=== PATIENT | female | born 1950 | race Caucasian/White ===

== ENCOUNTER 2016-07-15 16:50 | Inpatient (IN) ==
[2016-07-15] MEDS ORDERED: ASPIRIN PO STA (19:49)
[2016-07-15 21:01] LABS: MANUAL DIFF NEEDED? NO
[2016-07-15 21:07] LABS: BASO% 0.1 % (0.0-0.8); HEMATOCRIT 32.4 % (37.0-47.0); IMM GRAN# 0.06 X1000 (0.0-0.04); IMM GRAN% 0.4 % (0.0-0.5); LYMPH% 9.5 % (20.5-51.1); MCH 29.6 PG (27-31); MCHC 30.9 g/dL (33-37); MCV 95.9 FL (81-99); MONO# 2.02 X1000 (0.11-0.59); MONO% 14.7 % (1.7-9.3); MPV 9.4 FL (7.4-10.4); NEUT% 75.3 % (42.2-75.2); PLT 273 X1000 (130-400); RBC 3.38 XMIL (4.2-5.4)
[2016-07-15 21:12] LABS: INR 1.15; PROTIME 12.2 Seconds (9.2-11.7); PTT 28.2 Seconds (22.0-36.0)
[2016-07-15 21:32] LABS: CALCIUM 8.3 mg/dL (8.8-10.2); MAGNESIUM 1.5 mg/dL (1.5-2.7); TOTAL BILIRUBIN 0.45 mg/dL (0.20-1.00)
[2016-07-15] MEDS ORDERED: LASIX IV ONE (22:46)
[2016-07-15] MEDS ORDERED: SODIUM BICARBONATE 8.4% IV PUSH ONE (22:47)
[2016-07-15] MEDS ORDERED: LEVAQUIN 500 MG/D5W 500 MG/100 ML IVPB IV ONE (22:47)
[2016-07-15] MEDS ORDERED: CALCIUM GLUCONATE IV PUSH ONE (22:50)
--- NOTE | 2016-07-15 22:53 | PROVIDER DOCUMENTATION ---
This chart was entered by Indigo Avendano Scribe, acting as scribe for Soy Arroyo MD. HPI-General Adult - General Chief Complaint: Weakness Stated Complaint: FALL SKIN TEARS/BRUISES Time Seen by Provider: 07/15/16 19:49 Source: family Allergies/Adverse Reactions: Patient Allergies Allergy/AdvReac Type Severity Reaction Status Date / Time meperidine HCl * Allergy ANAPHYLAXIS Verified 07/15/16 18:26 [From Demerol] Penicillins Allergy ANAPHYLAXIS Verified 07/15/16 18:26 Home Medications: Home Medication List Medication Instructions Recorded Confirmed Last Taken Type Dexamethasone 4 mg PO DAILY 04/26/16 07/15/16 04/30/16 20:30 History Duloxetine [Cymbalta] 2 tab PO DAILY 04/26/16 07/15/16 04/30/16 20:30 History Gabapentin 300 mg PO TID 04/26/16 07/15/16 04/30/16 20:30 History Hydrocodone/Acetaminophen 1 each PO 4XDAY 04/26/16 07/15/16 04/30/16 21:00 History [Hydrocodon-Acetaminophn 10-325] Lorazepam 1 mg PO TID 04/26/16 07/15/16 04/30/16 20:30 History Mirtazapine [Remeron] 30 mg PO QHS 04/26/16 07/15/16 04/30/16 20:30 History Morphine E.r. [Ms Contin] 15 mg PO BID 04/26/16 07/15/16 04/30/16 History Olanzapine 5 mg PO QHS 04/26/16 07/15/16 04/30/16 17:30 History Pantoprazole [Protonix] 40 mg PO DAILY@0700 04/26/16 07/15/16 04/30/16 20:30 History Potassium Chloride [Klor-Con M20] 20 meq PO BID 04/26/16 07/15/16 04/30/16 20: 30 History Promethazine [Phenergan] 25 mg PO Q6H PRN PRN 04/26/16 07/15/16 Unknown History Trazodone [Desyrel] 200 mg PO QHS 04/26/16 07/15/16 04/30/16 20:30 History - History of Present Illness -Gen Adult Nature of Presenting Problems: Granddaughter states that she received a call today saying that pt had fallen. She states that she has been falling for the last 3 days. She states that she was confused when she got to her house today. Unknown if she hit her head. Location of Pain/Injury: reports: upper extremity Pain Radiation: reports: no radiation Severity: reports: mild Onset/Duration: reports: 3 days ago Timing: reports: getting worse Similar Symptoms Previously?: Yes Recently seen or treated by another doctor?: No Review of Systems - Adult - REVIEW OF SYSTEMS - ADULT ROS:: ROS per family Constitutional: denies: chills, fever Eyes: reports: no symptoms reported Ears, Nose, Mouth & Throat: reports: no symptoms reported Cardiovascular: reports: no symptoms reported Respiratory: reports: no symptoms reported Gastrointestinal: reports: no symptoms reported Genitourinary: reports: no symptoms reported Musculoskeletal: reports: no symptoms reported Integumentary: reports: skin sores/ulcer. denies: skin thickening Neurological: reports: no symptoms reported Psychiatric: reports: no symptoms reported Endocrine: reports: no symptoms reported Hematologic/Lymphatic: reports: no symptoms reported Allergic/Immunologic: reports: no symptoms reported All Other Systems: Reviewed and Negative Past History - Adult - PAST MEDICAL HISTORY-ADULT Review of Records: reports: Nursing Assessment Review, Medications Reviewed Major Childhood Illnesses: reports: denies history Cardiovascular: reports: HTN Respiratory: reports: cancer (lung) Psychiatric: reports: anxiety Endocrine/Immune: reports: Diabetes - PRIOR SURGERIES/PROCEDURES Surgical/Procedure History: reports: reviewed, not pertinent - IMMUNIZATION STATUS Childhood Immunizations: See Nurse Assessment Flu Vaccine: See Nurse Assessment - FAMILY HISTORY Family History: reviewed, not pertinent - SOCIAL HISTORY Smoking: cigarettes Provider spent 3-5 mins advising pt. on dangers of tobacco.: Discussed manners to quit use, and f/u contacts for add'l counseling. Substance Use: none/never Alcohol Use Frequency: never Physical Exam-General - PHYSICAL EXAM-ADULT Initial Vital Signs Reviewed: Yes - CONSTITUTIONAL General Appearance: other (sleeping) - RESPIRATORY Respiratory: wheezing - CARDIOVASCULAR Cardiovascular: regular rate, rhythm - SKIN Integumentary: other (eccymosis and small skin tears to left forearm) Progress - PLAN OF CARE/RESULTS Progress/Plan/Lab Results: Vital Signs - 8 hr 07/15/16 17:50 07/15/16 18:35 07/15/16 18:45 Temperature 98.9 F 97.7 F Pulse Rate 84 86 93 H Respiratory Rate 23 18 22 Blood Pressure 144/105 99/48 133/67 O2 Sat by Pulse Oximetry 85 L 100 100 Orders Category Date Time Status Cardiac Monitoring DIRECTED Care 07/15/16 19:50 Active Saline Loc NOW Care 07/15/16 19:50 Active CHEST-PORTABLE [RAD] Stat Exams 07/15/16 19:50 Ordered CBC WITH ELECTRONIC DIFF [HEME] Stat Lab 07/15/16 19:50 Uncollected CK PROFILE [SP CHEM] Stat Lab 07/15/16 19:50 Uncollected COMPREHENSIVE METABOLIC PANEL [CHEM] Stat Lab 07/15/16 19:50 Uncollected MAGNESIUM [CHEM] Stat Lab 07/15/16 19:50 Uncollected PRO B-NATRIURETIC PEPTIDE Stat Lab 07/15/16 19:50 Uncollected PROTIME WITH INR [COAG] Stat Lab 07/15/16 19:50 Uncollected PTT [COAG] Stat Lab 07/15/16 19:50 Uncollected TROPONIN T Stat Lab 07/15/16 19:50 Uncollected Aspirin Med 07/15/16 19:49 Discontinued 325 mg PO STAT STA EKG [EKG] Stat Ther 07/15/16 19:50 Ordered Result Diagrams: 07/15/16 20:57 07/15/16 20:57 - XRAY 1 XRAY Study: Chest Impression: Abnormal XRAY Interpretation: right lobe lesion, right lower lobe pneumonia: Dr. Arroyo( ER MD) - CT/MRI 2 CT Study: Head Impression: Normal CT Results: NAP: Dr. Marin(radiologist) - CONSULTS/PCP/HOSPITALIST Notification #1 *Consult/PCP/Hospitalist*: Dr. Arreola(hospitalist) Time Discussed: 22:45 Consult Disposition: Admit Departure - Departure Time of Disposition Decision: 22:52 DIAGNOSIS: Pneumonia, Hyperkalemia, Dyspnea, Lung cancer Disposition: ADMITTED INPATIENT 09 Certified Medical Emergency: Emergent Condition: Stable Referrals and Follow-Ups: None,PCP [Primary Care Provider] - - Critical Care Note This patient required my direct & personal management of CC.: Yes This chart was documented by the indicated scribe, (Juan Alberto,Indigo, Scribe) and accurately reflects the services I performed and decisions made by me, Soy Arroyo MD, as attested by the provider's signature.
[2016-07-15] MEDS ORDERED: CALCIUM GLUCONATE 1 GM in NS 50 ML IV ONE (23:00)
[2016-07-15] MEDS ORDERED: DECADRON IV ONE (23:06)
[2016-07-15] MEDS ORDERED: ALBUTEROL 0.5% INH CONC FOR HYPERKALEMIA INH ONE (23:15)
[2016-07-16] MEDS ORDERED: TYLENOL PO PRN (00:06)
[2016-07-16 00:22] LABS: URINE CULTURE NEEDED? NO; URINE MICRO REVIEW NEEDED? NO; URINE SOURCE CATH
[2016-07-16 00:25] LABS: BILIRUBIN URINE NEGATIVE (NEGATIVE); BLOOD URINE NEGATIVE (NEGATIVE); COLOR YELLOW; GLUCOSE URINE NEGATIVE (NEGATIVE); LEUKOCYTES URINE NEGATIVE (NEGATIVE); NITRITE URINE NEGATIVE (NEGATIVE); PROTEIN URINE NEGATIVE (NEGATIVE); SP GRAVITY URINE 1.007; TURBIDITY URINE CLEAR (CLEAR); UROBILINOGEN URINE NORMAL (NORMAL)
[2016-07-16 00:26] LABS: UR EPITHELIAL CELLS <10 /HPF (<10); URINE BACTERIA NEGATIVE /HPF; URINE RBC <10 /HPF (<10); URINE WBC <10 /HPF (<10)
[2016-07-16] MEDS: CLINDAMYCIN 600 MG/NS 600 MG/50 ML IVPB IV SCH ×3 (01:31→16:25)
[2016-07-16] MEDS: LOVENOX SUBQ SCH ×2 (01:35→23:14)
--- NOTE | 2016-07-16 01:40 | HISTORY AND PHYSICAL ---
REASON FOR ADMISSION: Altered mental status today. HISTORY OF PRESENT ILLNESS: Ms. Mitali Armas is a 66-year-old lady with a past medical history of COPD on home O2, stage IV lung cancer, and steroid-induced hyperglycemia. She also has a history of prior cervical and vulval cancer. Prior CAD with an [place] in the past. Sarcoidosis and reflux disease. Yesterday, the patient was seen by her granddaughter, who is currently at bedside, and is the sole source of history I have gotten about this patient. The granddaughter informed me she visited her and noted she was in her usual state of health. The patient denied any acute complaints at that time. About 2 p.m. today, her hotel housekeeper went in to check on her, and noticed that the patient was found on the floor, very lethargic, and laying on top of a standing fan. The hotel housekeeper was able to get her up. The patient said she was trying to make her way to get the phone, and she tripped and fell over, and was too weak to get up. Yesterday, the patient had another fall the granddaughter witnessed, and she informed me that the patient is not cautious when she walks, and tries to walk and hurry. To the best of the granddaughter's knowledge, the patient did not hit her head, and still had the presence of mind to use her Life Alert system, but was not able to reach anyone, according to the patient. I am unable to get any history from the patient. She is extremely somnolent, but will arouse to sternal rub only. REVIEW OF SYSTEMS: As such, review of systems could not be obtained. The granddaughter denies any nausea, vomiting, diarrhea, to the best of her knowledge. ALLERGIES: Demerol and penicillin. HOME MEDICATIONS: She is on dexamethasone 4 mg daily, Cymbalta 60 mg daily, gabapentin 300 mg t.i.d., [place] 7.5 four times a day, lorazepam 1 mg t.i.d., Remeron 30 mg at bedtime, MS Contin 15 mg b.i.d., olanzapine 5 mg at bedtime, Protonix 40 mg daily, potassium chloride 20 mg b.i.d., Phenergan 25 mg q.6 p.r.n., trazodone 200 mg at bedtime. PAST SURGICAL HISTORY: Notable for hysterectomy, port placement, two back surgeries, neck surgery, leg surgery. SOCIAL HISTORY: Currently, still smokes a pack a day. No illicit drug use. Lives alone. FAMILY HISTORY: Notable for lung cancer in her mother. No diabetes or heart disease in first- degree relatives per her granddaughter. LABORATORY WORK: CT of the head preliminary report is pending. There is a lot of motion artifact per me, and I cannot see any overt skull fractures. No overt intracranial bleed noted. There is an area of questionable hypodensity in the frontal right lobe, but then again, due to a lot of motion artifact, it is hard to quantify. I cannot see any overt cranial bleed or clear-cut evidence of any bleeding the suprasellar cistern. Chest film shows numerous nodular opacities in both lung cespedes. Questionable right middle lobe infiltrate versus mass. Blunting of the left costophrenic angle. EKG shows normal sinus rhythm, with borderline SC prolongation and a slight tenting of the T-waves. White count 13,000. Hemoglobin and hematocrit is 10 and 32. Platelets 273,000. Sodium 123, potassium 6. Bicarbonate is 32. Anion gap is only 10. BUN 18, creatinine 1.0. Calcium is 8.3, albumin 3.0. ProBNP 17,000. Troponin 0.058. PT/PTT is grossly normal. Her last ejection fraction early this year, showed EF of 70%. PHYSICAL EXAMINATION: GENERAL: Chronically ill woman who is severely obtunded and lethargic. Responds to sternal rub only. Moves all extremities. Mumbling incoherently. HEENT: Normocephalic, atraumatic. EYES: Pupils are miotic and slightly reactive. No conjunctival injection. She is anicteric, and not pale. ENT: Exam is limited, but visually, her oral mucosa seems to be dry. No overt exudates or erythema. No central cyanosis visualized. NECK: Short and thick. No JVD. No bruit or thyromegaly. No hepatojugular reflux. CHEST: Decreased entry in both lung cespedes, with scattered wheezes. CARDIOVASCULAR: First and second heart sounds heard, but distant. Rhythm is regular. No murmurs appreciated. ABDOMEN: Protuberant, soft, with no mass or organomegaly appreciated. Bowel sounds hyperactive. RECTAL: Deferred at this time. EXTREMITIES: Patient has bruises on both knees and on her arms dorsally. No edema, clubbing, cyanosis. Pulses distally intact. NEUROLOGICAL: As I stated earlier, just responds to sternal rub. Moves all extremities. No tremors or myoclonus noted. SKIN: See above, but otherwise grossly unremarkable. MUSCULOSKELETAL: Grossly normal. No overt fractures or dislocations. ASSESSMENT AND PLAN: 1. Toxic/metabolic encephalopathy, multifactorial, i.e. from hyponatremia, and I strongly suspect from opiates and other GORE STITCHER medications. I do believe the hyponatremia is also multifactorial. It could be due to the hyponatremia, secondary to SIADH, or also at the same time could be due to adrenal insufficiency, as this patient is on chronic steroid therapy. Patient also taking Cymbalta, which can also aggravate hyponatremia. No overt intracranial process to explain this, although this was not a very good quality CT scan. For now, will withhold any GORE STITCHER active medications, including benzodiazepines and antidepressants, and of course, opioids. Will check a BMP q.6 hours to avoid any overcorrection of her sodium, and to ensure that this is being corrected slowly. The patient has already received Lasix and calcium gluconate for membrane stabilization, and bicarbonate for now. If her potassium is still elevated, we will add on insulin and D50. I am going to add on also albuterol megadose. I also gave the patient a trial dose of Decadron, in case she has adrenal insufficiency, in which case this also corrects her relative hypotension, and also can increase potassium losses. It will also help with her for COPD. Urine osmolality and TSH levels have also been ordered. 2. Possible right middle lobe pneumonia. We will treat patient with clindamycin and Levaquin and nebulizer treatments. 3. Stage IV cancer. Patient continues to smoke. Prognosis long-term is very bleak. Consult Dr. French for this. 4. Chronic obstructive pulmonary disease. Continue with nebulizer treatments and steroids. 5. For history of coronary artery disease, aspirin was given. Repeat a troponin in the morning, although I would say if she does have a myocardial infarction, this is not something that any aggressive treatment will be amenable. Also, repeat an EKG in the a.m. cc: MD Abdullahi Luke, MD
[2016-07-16 02:27] LABS: POTASSIUM 4.5 mmol/L (3.5-5.1)
[2016-07-16] MEDS: DUONEB (A & A) INH SCH ×4 (04:00→21:10)
--- NOTE | 2016-07-16 05:34 | EKG Report ---
Test Performed on : 07/15/2016 9:29:53 PM Test Reason : Chest Pain Blood Pressure : / mmHG Vent. Rate : 107 BPM Atrial Rate : 107 BPM P-R Int : 168 ms QRS Dur : 084 ms QT Int : 320 ms P-R-T Axes : 070 073 080 degrees QTc Int : 427 ms Sinus tachycardia. Otherwise normal ECG No previous ECGs available Unconfirmed Result
--- NOTE | 2016-07-16 07:17 | EKG Report ---
Test Performed on : 07/16/2016 06:17:54 AM Test Reason : hyperkalemia cad Blood Pressure : / mmHG Vent. Rate : 101 BPM Atrial Rate : 101 BPM P-R Int : 152 ms QRS Dur : 090 ms QT Int : 366 ms P-R-T Axes : 069 067 096 degrees QTc Int : 474 ms Sinus tachycardia. T wave abnormality, consider anterior ischemia Abnormal ECG When compared with ECG of 15-JUL-2016 21:29, T wave inversion now evident in Anterior leads QT has lengthened Confirmed by Castro LEROY, Royce Godoy ([id number]) on 07/16/2016 7:35:36 AM
[2016-07-16 07:54] LABS: HEMATOCRIT 31.9 % (37.0-47.0); HEMOGLOBIN 9.9 g/dL (12.0-16.0); IMM GRAN# 0.04 X1000 (0.0-0.04); IMM GRAN% 0.4 % (0.0-0.5); LYMPH# 0.32 X1000 (1.2-3.4); LYMPH% 2.9 % (20.5-51.1); MANUAL DIFF NEEDED? YES; MCH 29.9 PG (27-31); MCV 96.4 FL (81-99); MONO# 0.89 X1000 (0.11-0.59); MONO% 8.1 % (1.7-9.3); MPV 9.4 FL (7.4-10.4); NEUT% 88.6 % (42.2-75.2); PLT 240 X1000 (130-400); RBC 3.31 XMIL (4.2-5.4)
[2016-07-16 07:56] LABS: BANDS 4 % (0-1); HYPOCHROM 1+; LYMPHS 2 % (21-51); MONO 4 % (1-9)
[2016-07-16 08:04] LABS: AGAP 13; BUN 15 mg/dL (8-22); CALCIUM 8.6 mg/dL (8.8-10.2); CHLORIDE 79 mmol/L (98-107); COSMO 266; POTASSIUM 4.6 mmol/L (3.5-5.1); SODIUM 131 mmol/L (136-145); TCO2 39 mmol/L (25-35)
--- NOTE | 2016-07-16 08:04 | Diag Imaging Result Document ---
PROCEDURE NAME: HEAD W/O CONTRAST - 07/15/2016 CT HEAD WITHOUT CONTRAST: A dose-reduction protocol was used. COMPARISON: No comparison exam. FINDINGS: There is no evidence of intracranial hemorrhage, mass effect, midline shift, or hydrocephalus. There is no evidence of infarct although acute infarcts may not be immediately visible. There is no skull fracture. IMPRESSION: No visible acute process. No evidence of intracranial injury. The on-call radiologist provided preliminary results at 8:39 p.m. on 07/15/2016.
--- NOTE | 2016-07-16 08:09 | Diag Imaging Result Document ---
PROCEDURE NAME: CHEST-PORTABLE - 07/15/2016 PORTABLE UPRIGHT CHEST: COMPARISON: 07/05/2016. FINDINGS: No change in right subclavian Port A Catheter. No pneumothorax. Interval development of dense infiltrates in the mid and lower lungs. I believe there is also a small left effusion. The heart is enlarged. There are calcified mediastinal and hilar lymph nodes. IMPRESSION: Development of bibasilar infiltrates.
[2016-07-16] MEDS: DECADRON PO SCH ×2 (10:08→21:05)
[2016-07-16] MEDS: NEURONTIN PO SCH ×3 (10:08→21:05)
[2016-07-16] MEDS: PROTONIX PO SCH (10:08)
[2016-07-16] MEDS: NORCO-10 PO SCH ×5 (10:08→22:03)
[2016-07-16] MEDS: ATIVAN PO SCH ×4 (10:09→21:05)
--- NOTE | 2016-07-16 15:21 | PROGRESS NOTE ---
DATE: 07/16/2016 SUBJECTIVE: Today, Ms. Armas referred to be doing fine. She does not have any acute complaints. Continues to have some residual cough and still weak. OBJECTIVE: Vital signs: Blood pressure is 106/40, pulse of 105, respirations 18, temperature 97.4. General: Ms. Armas is a 66-year-old, female. She is in bed , not in distress. HEENT: Mucosa is dry, anicteric and acyanotic. Neck: Supple. Chest: Air entry is bilaterally reduced. There is diffuse bilateral wheezing. Cardiovascular: Regular rate and rhythm. Abdomen: Soft. There is an old infraumbilical surgical scar. Extremities: No pedal edema. PRODUCT DESIGNER: Patient is alert, awake, oriented to person and to place. Patient follows basic commands. LABORATORY DATA: WBC is 11.03, hemoglobin is 9.9, platelet count of 243. There is only 4% of bands in the peripheral smear. Chemistry is reviewed. Sodium is 131, potassium is 4.6, chloride 97, bicarb is 39. ASSESSMENT AND PLAN: 1. Generalized weakness and falls at home, which I think is multifactorial including medications, as well as general muscle health abnormality from multivitamins. 2. Altered mental status at home, likely due to toxic metabolic encephalopathy. 3. Clinical dehydration. 4. Chronic obstructive pulmonary disease, possibly in exacerbation. 5. History of lung cancer. Patient continues to have chemotherapy with Dr. French. 6. Bronchospasms, likely due to underlying chronic obstructive pulmonary disease exacerbation. 7. Hyponatremia, could be multifactorial. But for he looks very dry so we are going to hydrate him, get her euvolemic and then address the tonicity later. 8. Metabolic alkalosis, which I think is secondary to the dehydration. So, for now, we are going to start Ms. Armas on normal saline at 100 mL/h and re-evaluate her hydration status in the morning. We will continue with the current antibiotics and the nebulization. Will put her on incentive spirometer to help with the bronchospasms. cc: Andres Rashid MD [facility]PITALEstefani
[2016-07-16] MEDS: NS 1,000 ML IV SCH (15:44)
--- NOTE | 2016-07-16 16:14 | Diag Imaging Result Document ---
PROCEDURE NAME: CT THORAX W/CONTRAST - 07/16/2016 CT THORAX WITH CONTRAST: TECHNIQUE: Exam performed with intravenous contrast. A dose reduction protocol was used. COMPARISON: Compared with 05/02/2016. FINDINGS: There are substantial emphysematous changes similar to the previous exam. There is a 3.8 x 2.8 cm mass with irregular margins at the right hilum. This has enlarged from 2.1 x 2.8 cm on the previous exam. This is suspicious for malignancy. There are calcified granulomata and calcified bilateral hilar and mediastinal lymph nodes from old granulomatous disease. There are no substantially enlarged noncalcified mediastinal lymph nodes identified. There are bronchial wall thickening and ill-defined infiltrate and atelectasis at the left lower lobe, primarily the posteroinferior left lower lobe. These findings are suspicious for a bronchopneumonia. There is no substantial pleural effusion or pneumothorax identified. Included sections of upper abdomen show several low-density lesions in the liver, which have decreased in size and have mildly increased in number. These are compatible with metastases. IMPRESSION: Substantial emphysematous changes. Interval enlargement of the right hilar mass. Interval increase in hepatic metastases. Left lower lobe bronchopneumonia.
[2016-07-16 16:37] LABS: CALCIUM 8.3 mg/dL (8.8-10.2); POTASSIUM 4.8 mmol/L (3.5-5.1)
[2016-07-16 20:28] LABS: AGAP 9; BUN 14 mg/dL (8-22); CALCIUM 7.6 mg/dL (8.8-10.2); CHLORIDE 79 mmol/L (98-107); COSMO 257; POTASSIUM 4.3 mmol/L (3.5-5.1); SODIUM 126 mmol/L (136-145); TCO2 38 mmol/L (25-35)
[2016-07-16] MEDS ORDERED: LEVAQUIN 500 MG in NS 100 ML IV SCH (22:00)
[2016-07-16] MEDS: LEVAQUIN 500 MG/D5W 500 MG/100 ML IVPB IV SCH (23:14)
[2016-07-17] MEDS: NS 1,000 ML IV SCH ×3 (02:47→13:40)
[2016-07-17] MEDS: LEVAQUIN 500 MG/D5W 500 MG/100 ML IVPB IV SCH (02:47)
[2016-07-17] MEDS: DUONEB (A & A) INH SCH ×4 (03:45→21:00)
[2016-07-17] MEDS: PROTONIX PO SCH (06:15)
[2016-07-17 06:20] LABS: MANUAL DIFF NEEDED? NO
[2016-07-17 06:32] LABS: HEMATOCRIT 31.8 % (37.0-47.0); HEMOGLOBIN 9.6 g/dL (12.0-16.0); IMM GRAN# 0.02 X1000 (0.0-0.04); IMM GRAN% 0.3 % (0.0-0.5); LYMPH# 0.46 X1000 (1.2-3.4); LYMPH% 7.6 % (20.5-51.1); MCH 29.7 PG (27-31); MCHC 30.2 g/dL (33-37); MCV 98.5 FL (81-99); MONO# 0.55 X1000 (0.11-0.59); MONO% 9.1 % (1.7-9.3); MPV 9.4 FL (7.4-10.4); PLT 217 X1000 (130-400); RBC 3.23 XMIL (4.2-5.4)
[2016-07-17 07:22] LABS: AGAP 8; BUN 10 mg/dL (8-22); CHLORIDE 85 mmol/L (98-107); COSMO 268; SODIUM 134 mmol/L (136-145); TCO2 41 mmol/L (25-35)
[2016-07-17] MEDS: NEURONTIN PO SCH ×3 (09:23→22:01)
[2016-07-17] MEDS: NORCO-10 PO SCH ×4 (09:23→22:01)
[2016-07-17] MEDS: DECADRON PO SCH ×2 (09:23→22:00)
[2016-07-17] MEDS: ATIVAN PO SCH ×3 (09:23→22:01)
[2016-07-17] MEDS: ZOFRAN IV PRN (09:23)
[2016-07-17] MEDS: VITAMIN D PO SCH (10:50)
--- NOTE | 2016-07-17 10:53 | PROGRESS NOTE ---
DATE: 07/17/2016 SUBJECTIVE: Today, Ms. Armas referred to be doing fine. She was actually requesting to know when she will be leaving. OBJECTIVE: Vital Signs: Blood pressure is 136/68, pulse of 92, respirations are 16, temperature is 98 degrees. General Examination: Ms. Armas is a 66-year-old, female. She was in bed. Not seemingly distressed. HEENT: Mucosa is pink and slightly dry. Anicteric and acyanotic. Neck: Supple. Chest: Air entry is bilaterally reduced. There is diffuse end exploratory wheezing and prolonged expiratory phase of respiration. Cardiovascular: Regular rate and rhythm. No murmurs. No rubs. No gallops. Abdomen: Soft. There is an old infraumbilical surgical scar. Extremities: No pedal edema. There are some multiple skin bruises and abrasions. TANK WELDER: The patient is alert and oriented, follows commands. Laboratory Data: WBC is 6.05, hemoglobin is 9.6, platelet count of 207,000. Chemistry: Sodium is 134, potassium is 5, chloride is 85, bicarbonate is 41. Vitamin D is 11.7. CURRENT MEDICATIONS: 1. Albuterol nebulizers. 2. Decadron 4 mg p.o. b.i.d. 3. Gabapentin 300 three times per day. 4. Levofloxacin. 5. Lansoprazole. 6. Lorazepam. 7. Pantoprazole 40 daily. 8. Normal saline at 100 mL per hour. INTAKES AND OUTPUTS: Carrillo catheter output 1975. Patient has a positive balance of 439. ASSESSMENT: 1. General weakness and falls at home. We think this is multifactorial including vitamin deficiencies.We will continue also physical therapy for her. 2. Altered mental status, improved. 3. Clinical dehydration. We will continue to hydrate. 4. Chronic obstructive pulmonary disease, in mild exacerbation. 5. History of lung cancer. We actually did a CT scan of the lungs yesterday which shows interval enlargement of the right hilar mass. Patient continues to have therapy with Dr. French. We are going to defer any recommendation with regards to hematology/oncology. Of note, patient also has increasing hepatic metastases. 6. Left lower lobe bronchopneumonia. We would continue using antibiotics, nebulization, and incentive spirometer. 7. Hyponatremia. We think this is multifactorial. We will continue for now on the intravenous fluids since patient is dry, to hydrate her to get euvolemic, and then address the tonicity later. 8. Metabolic alkalosis. We think this is subsequent to dehydration. 9. Vitamin D deficiency. We will start replacing this, which I think will also help with her falls. cc: Andres Rashid MD MTDD
--- NOTE | 2016-07-17 15:45 | Diag Imaging Result Document ---
PROCEDURE NAME: MRI BRAIN W W/O CONTRAST - 07/17/2016 MRI BRAIN WITH AND WITHOUT: FINDINGS: Axial, sagittal, and coronal images obtained in multiple sequences. These are followed by postcontrasted axial and coronal images. No recent infarct. There are several tiny areas of increased signal on the FLAIR and T2 weighted images, which may simply be minimal microvascular ischemic changes. No distinct mass or midline shift. No enhancing lesion on the postcontrasted images. No hydrocephalus. No epidural or subdural fluid collection. IMPRESSION: 1. No recent infarct. 2. No brain metastases identified.
[2016-07-18] MEDS: NS 1,000 ML IV SCH ×2 (00:14→11:17)
[2016-07-18] MEDS: LOVENOX SUBQ SCH (00:15)
[2016-07-18] MEDS: LEVAQUIN 500 MG/D5W 500 MG/100 ML IVPB IV SCH (00:15)
[2016-07-18] MEDS: DUONEB (A & A) INH SCH ×4 (04:00→21:20)
--- NOTE | 2016-07-18 04:44 | CONSULTATION ---
DATE OF CONSULTATION: 07/16/2016 ATTENDING PHYSICIAN AND REQUESTING PHYSICIAN: Dr. Arreola. CONSULTING PHYSICIAN: Dr. French. REASON FOR CONSULTATION: Patient known to [facility], Dr. French, with a history of non small cell lung cancer, metastatic, currently actually recently on Opdivo, recently developed increasing shortness of breath. Treatment was placed on hold with plans to obtain restage imaging and follow up with the patient in clinic on July 19 to discuss findings and recommended options. Patient admitted with altered mental status post recent fall. Patient known to [facility], Dr. French, with a history of non small cell lung cancer, metastatic. HISTORY OF PRESENT ILLNESS: Ms. Armas is a pleasant 66-year-old lady known to Dr. French with a history of metastatic non small cell lung cancer, recently being treated on Opdivo until July 08, 2016, when she reported to clinic with increasing shortness of breath. At that time, Opdivo treatment was placed on hold with the plan to obtain images for restaging and the patient was scheduled for followup as an outpatient in the clinic with Dr. French on July 19, to discuss the results and options or recommendations based on the findings. However, when at home, the patient reports that she had been having multiple falls. On Friday, she states that she was not dizzy but was having problems with her balance. She does recall having a fall but does not recall anything beyond that before she awoke and realized that she was in the hospital. Although she is not currently on any blood thinning medications, she has extensive bruising and ecchymoses primarily on her lower extremities bilaterally as well as her arms. This also includes multiple areas of skin tears. No evidence of broken bones. PAST MEDICAL HISTORY: 1. Non small cell lung cancer. 2. COPD. 3. Coronary artery disease. 4. Anxiety. 5. Depression. 6. Osteoarthritis. 7. Tobacco use, dependence. 8. Degenerative disk disease, lumbar spine. PAST SURGICAL HISTORY: 1. Hysterectomy. 2. Port placement. 3. Back surgery x2. 4. Neck surgery. 5. Leg surgery. 6. CABG. FAMILY HISTORY: Cancer. Her mom had a history of lung cancer. No known family history of diabetes or heart disease. SOCIAL HISTORY: Tobacco: Current. Alcohol: None. Patient is unmarried and lives alone. ALLERGIES: Demerol and penicillin. MEDICATIONS: 1. Dexamethasone 4 mg daily. 2. Cymbalta 60 mg daily. 3. Gabapentin 300 mg t.i.d. 4. [place] 7.5 mg 4 times daily. 5. Ativan 1 mg 3 times daily. 6. Remeron 30 mg at bedtime. 7. MS Contin 15 mg twice daily. 8. Protonix 40 mg daily. 9. Potassium chloride 20 mEq twice daily. 10.Phenergan 25 mg every 6 hours as needed for nausea and vomiting. 11.Trazodone 200 mg at bedtime. REVIEW OF SYSTEMS: General: The patient does report some fatigue. She denies recent fever or chills, night sweats. Ears, eyes, nose, and throat: She denies any hearing loss, ringing in her ears. She denies visual disturbance, nosebleeds. No problems with her teeth or gums. Cardiovascular: She denies chest pain. No history of irregular heartbeat. She denies dizziness. She has experienced shortness of breath and recent fainting and loss of consciousness. Pulmonary: She denies chest pain with breathing. She denies hoarseness. No history of asthma. No complaints of cough, postnasal drip, or sinus headaches. No episodes of hemoptysis. Gastrointestinal: Occasional nausea without vomiting, controlled with antiemetic medications. No diarrhea, constipation, decreased appetite. No abdominal pain. No difficulty swallowing. She denies blood in her stool. Urinary: No complaints of pain or burning with urination. No difficulty urinating. No blood in her urine. Skeletal: She does have chronic back pain, generalized weakness. Skin: She has scattered ecchymosis and bruising all over her body, predominantly in both lower extremities at the level of her knees and below and scattered on bilateral upper extremities. Neurologic: She does complain of soreness following her recent fall and does complain of difficulty with her balance. She denies dizziness, vertigo, or weakness on one side. PHYSICAL EXAMINATION: General: The patient is resting comfortably wearing a nasal cannula for O2 at 2 L. She states she is feeling well. Eyes: PERRL. Mild scleral icterus. Ears, nose, throat, neck, and mouth: Her neck is supple. No lymphadenopathy. No JVD. Oral mucosa is moist and normal in appearance. Cardiovascular: S1, S2, without murmurs, gallops or rubs. Respiratory: Bilateral breath sounds, diminished throughout, clear. Gastrointestinal: Abdomen is obese, nondistended, mildly tender in the right upper quadrant. Bowel sounds are positive in all quadrants. No rebound or guarding. Musculoskeletal: General aches and pains with scattered ecchymoses and bruising over her entire body from recent fall. She also has tears on her skin as a result of the fall. Neurologic: She is alert and oriented x3. No ability to assess gait at the time of the visit. Lymphatic: No palpable lymphadenopathy. LABORATORY DATA: WBC 13,000, hemoglobin 10, hematocrit 32, platelets 273,000. Sodium 123, potassium 6, bicarb 32, BUN 18, creatinine 1. IMAGING: Chest x-ray on July 15 revealed bibasilar infiltrates. Head CT on July 15 revealed no acute intracranial process and no evidence of injury. CT of the chest on July 16 revealed substantial emphysematous changes. It did reveal interval increase in size of the right hilar mass as well as interval increase in the metastatic liver lesions. ASSESSMENT: 1. Toxic metabolic encephalopathy, likely multifactorial, resulting in recent fall. Continue to monitor electrolytes and additional labs and replace as indicated per protocol. 2. Non small cell lung cancer, metastatic to the liver. Treatment currently on hold. 3. Imaging evidence of progression of disease in the lung and liver despite treatment with Opdivo. Treatment currently on hold pending further workup and recommendations based on findings. 4. Imbalance, loss of consciousness, and falls. We will order an MRI of the brain with contrast for further evaluation of malignancy contributing to these symptoms. 5. Chronic obstructive pulmonary disease. Patient will maintain oxygen saturation with nasal cannula as needed. Continue with nebulizer and steroid treatments. 6. Coronary artery disease. Patient given aspirin and will continue therapy during hospitalization. 7. Depression. Currently managed with antidepressant medication. Continue during hospitalization. 8 Anxiety. Controlled on medication. Continue during hospitalization. Dictated by REDD Dos Santos for Adalid French MD cc: Adaldi French MD
[2016-07-18] MEDS: PROTONIX PO SCH (06:11)
[2016-07-18 06:25] LABS: MANUAL DIFF NEEDED? NO
[2016-07-18 06:34] LABS: HEMATOCRIT 31.5 % (37.0-47.0); HEMOGLOBIN 9.3 g/dL (12.0-16.0); IMM GRAN# 0.02 X1000 (0.0-0.04); IMM GRAN% 0.3 % (0.0-0.5); LYMPH# 0.61 X1000 (1.2-3.4); LYMPH% 9.2 % (20.5-51.1); MCH 29.8 PG (27-31); MCHC 29.5 g/dL (33-37); MONO# 0.55 X1000 (0.11-0.59); MONO% 8.3 % (1.7-9.3); MPV 9.4 FL (7.4-10.4); NEUT% 82.2 % (42.2-75.2); PLT 216 X1000 (130-400); RBC 3.12 XMIL (4.2-5.4)
[2016-07-18 07:12] LABS: AGAP 5; BUN 10 mg/dL (8-22); CHLORIDE 91 mmol/L (98-107); COSMO 264; SODIUM 132 mmol/L (136-145); TCO2 36 mmol/L (25-35)
[2016-07-18] MEDS: ATIVAN PO SCH ×4 (08:12→22:05)
[2016-07-18] MEDS: NEURONTIN PO SCH ×3 (08:12→22:03)
[2016-07-18] MEDS: NORCO-10 PO SCH ×5 (08:12→22:05)
[2016-07-18] MEDS: VITAMIN D PO SCH (08:12)
[2016-07-18] MEDS: DECADRON PO SCH ×2 (08:15→22:04)
[2016-07-18] MEDS ORDERED: MILK OF MAGNESIA PO ONE (10:31)
--- NOTE | 2016-07-18 10:59 | PROGRESS NOTE ---
DATE: 07/18/2016 SUBJECTIVE: Today, Ms. Armas refers to be doing fine. She does not have any complaints. OBJECTIVE: Vitals: Blood pressure is 140/54, pulse of 93, respirations 20, temperature is 98.5. General: Ms. Armas is a 66-year-old, female. She was in bed. She did not seem to be in any distress. HEENT: Mucosa is pink. Continues to be slightly dry. Anicteric. Acyanotic. Neck: Supple. Chest: Good air entry bilateral. There is diffuse bilateral, end-expiratory wheezing and some bibasilar crepitations. Cardiovascular: Regular rate and rhythm. Abdomen: Soft. There is a lower old surgical scar. Extremities: No pedal edema. VETERINARY TECHNOLOGY INSTRUCTOR: Patient is alert and oriented. Skin: There are multiple skin bruises and ecchymotic lesions on the lower extremities. VETERINARY TECHNOLOGY INSTRUCTOR: Patient is alert and oriented and follows commands. LABORATORY DATA: WBC is 8.61, hemoglobin is 9.3, platelet count of 216. Chemistry is reviewed. Sodium is 132, potassium is 5.0, bicarb is 36, gradually improving. ASSESSMENT: 1. General weakness and falls at home. Likely multifactorial including dehydration and vitamin deficiencies. We will continue to replace and continue hydration. The patient is getting physical therapy. 2. Altered mental status, likely toxic metabolic. This has improved. 3. Clinical dehydration, improved. 4. Chronic obstructive pulmonary disease with mild exacerbation. The patient continues to have some residual bronchospasms. We would continue with the current therapy. 5. History of lung cancer. A CTA actually shows worsening of the disease with metastasis to the liver. Patient follows up with Dr. French. 6. Left lower lobe pneumonia. We will continue with the antibiotics. 7. Hyponatremia. We think this is multifactorial. Patient is getting IV fluids. This morning, the sodium went slightly down and her hydration status has improved. So, we are going to repeat the sodium this afternoon. If it continues to have a downward trend, it will mean that her hydration status has improved and that we need to now address the tonicity which will be to address the other possible causes of the hyponatremia. 8. Metabolic alkalosis due to dehydration. This is improving. 9. Vitamin D deficiency. We will continue to replace. 10. Constipation. We are going to address this more symptomatically. So today, we are going to address Ms. Armas constipation. We will encourage her to sit up in the chair and move around with physical therapy. We are going to continue with the breathing treatment, as well as the lung chronic obstructive pulmonary disease therapy and the pneumonia therapy. We will repeat the sodium level for this afternoon including urine sodium and urine osmolarity and then make some changes accordingly. cc: Andres Rashid MD
[2016-07-18 15:09] LABS: AGAP 8; BUN 9 mg/dL (8-22); CALCIUM 8.1 mg/dL (8.8-10.2); CHLORIDE 84 mmol/L (98-107); COSMO 257; POTASSIUM 4.7 mmol/L (3.5-5.1); SODIUM 127 mmol/L (136-145); TCO2 35 mmol/L (25-35)
[2016-07-18] MEDS ORDERED: SAMSCA PO ONE (16:20)
[2016-07-19] MEDS: LOVENOX SUBQ SCH (00:17)
[2016-07-19] MEDS: LEVAQUIN 500 MG/D5W 500 MG/100 ML IVPB IV SCH (00:17)
[2016-07-19] MEDS: DUONEB (A & A) INH SCH ×2 (03:41→11:30)
[2016-07-19] MEDS: PROTONIX PO SCH (06:21)
[2016-07-19 07:49] VITALS: BP 132/69
[2016-07-19] MEDS: VITAMIN D PO SCH (08:31)
[2016-07-19] MEDS: NEURONTIN PO SCH ×2 (08:31→14:49)
[2016-07-19] MEDS: NORCO-10 PO SCH ×2 (08:31→14:50)
[2016-07-19] MEDS: ATIVAN PO SCH ×2 (08:31→14:50)
[2016-07-19] MEDS: DECADRON PO SCH (08:32)
[2016-07-19 11:48] LABS: MANUAL DIFF NEEDED? NO
[2016-07-19 11:59] LABS: RETIC% 2.44 % (0.8-2.1); RETIC-HE 26.9 PG (28.2-36.6)
[2016-07-19 12:22] LABS: AGAP 7; BUN 9 mg/dL (8-22); CALCIUM 8.5 mg/dL (8.8-10.2); CHLORIDE 90 mmol/L (98-107); COSMO 264; SODIUM 131 mmol/L (136-145); TCO2 34 mmol/L (25-35)
[2016-07-19 12:23] LABS: IRON SATURATION 17 %; TIBC 220 ug/dL; TOTAL IRON 38 ug/dL (49-151); UNBOUND IRON 182 ug/dL (112-346)
[2016-07-19] MEDS: ZOFRAN IV PRN (12:29)
[2016-07-19 12:34] LABS: HEMATOCRIT 36.6 % (37.0-47.0); IMM GRAN# 0.03 X1000 (0.0-0.04); IMM GRAN% 0.4 % (0.0-0.5); LYMPH# 0.65 X1000 (1.2-3.4); LYMPH% 8.5 % (20.5-51.1); MCH 29.9 PG (27-31); MCHC 30.1 g/dL (33-37); MCV 99.5 FL (81-99); MONO# 0.48 X1000 (0.11-0.59); MONO% 6.3 % (1.7-9.3); MPV 9.1 FL (7.4-10.4); NEUT% 84.8 % (42.2-75.2); PLT 232 X1000 (130-400); RBC 3.68 XMIL (4.2-5.4)
[2016-07-19] MEDS ORDERED: SODIUM CHLORIDE PO SCH (21:00)
--- NOTE | 2016-07-20 05:40 | DISCHARGE SUMMARY ---
ADMISSION DATE: 07/15/2016 DISCHARGE DATE: 07/19/2016 CONSULTATIONS: Adalid French MD - Hematology/Oncology. PERTINENT PROCEDURES: 1. Head CT showed no visible acute process. No evidence of intracranial hemorrhage injury. 2. Chest CT showed substantial emphysematous changes, interval enlargement of the right hilar mass, interval increase in the hepatic metastasis. 3. Brain MRI showed no recent infarct, no brain metastasis identified. DISCHARGE DIAGNOSES: 1. General weakness with falls at home. Multifactorial, including dehydration and vitamin deficiencies. Continue with supplementation. The patient received physical therapy while in the hospital. She will be going back home with her home health with [facility]. The patient also has a granddaughter that helps out, as well as a rotary drier operator that comes 2-3 times a week. She has a walker and home O2 2. Altered mental status, likely toxic metabolic. Improved. 3. Clinical dehydration. Improved. 4. Chronic obstructive pulmonary disease with mild exacerbation. The patient continued to have residual bronchospasms. Improved. 5. Lung cancer history. CTA actually showed worsening of the disease with metastasis to the liver. The patient will continue to followup with Dr. French. The patient has progression of disease in the lung and liver despite treatment with Opdivo. Her treatment is currently on hold pending more work-up. 6. Imbalance, loss of consciousness with falls. A MRI was ordered to rule out any malignancy. It was negative. Patient worked with physical therapy. Improved. 7. Left lower lobe pneumonia. Continue with p.o. antibiotics at home. 8. Hyponatremia, multifactorial. Stable. 9. Lung cancer history. Aware. 10. Metabolic alkalosis secondary to dehydration. Improving. 11. Vitamin D deficiency. Continue supplementation. 12. Constipation. Addressed symptomatically. HOSPITAL COURSE: Ms. Armas is a 66-year-old female with a past medical history of chronic obstructive pulmonary disease on home O2, stage IV lung cancer, and steroid induced hyperglycemia. History of prior cervical on vulva cancer, prior coronary artery disease with myocardial infarction in the past, sarcoidosis and reflux disease. The granddaughter had visited the patient the day before her admission. She was in her normal state of health. The rotary drier operator came by around 2 p.m. on the day of her admission, and the patient was noted to be on the floor, very lethargic, and lying on top of a fan. The rotary drier operator was not able to get her up. The patient stated she was trying to make her way to the phone, she tripped and fell over and was too weak to get up. The patient did undergo a CT of the head, but did not show any visible acute process. There is no evidence of intracranial injury. She was also found to be hyponatremic and admitted for toxic metabolic encephalopathy. Started on IV fluids. She was also treated for a possible right middle lobe pneumonia with IV antibiotics and bronchodilators. Also consulted Dr. French because of patient's history of stage IV cancer, who continues to smoke. CT of the chest was performed. It shows substantial emphysematous changes, interval enlargement of a right hilar mass, and interval increase in hepatic metastasis. Secondary to her fall, she underwent a brain MRI to rule out any metastasis. It was negative. The patient's imaging did show progression of the disease in the lung and liver despite treatment with Opdivo. Her treatment was currently put on hold. Mrs. Armas was encouraged to sit up in a chair, move about with physical therapy. She was continued to be treated for her mild chronic obstructive pulmonary disease exacerbation, as well as pneumonia and continue on IV fluids for her hyponatremia. The patient did work with physical therapy. Mrs. Armas plan is to return home at discharge. She has a Life Alert button. Bruises on her body. She does have a primary care physician, Dr. Cm in [place]. Home O2 with wound care, nebulizers, as well as home health and [employer], as well as a granddaughter who helps out and a rotary drier operator who comes 2-3 times a week. She also has a walker at home. [email or web address] is her Home Health. The patient has clinically improved. Dr. Rashid feels she is appropriate for discharge home today. VITAL SIGNS: Temperature is 97.8 degrees, heart rate 85, respirations 18, blood pressure 132/69, O2 saturation is 96% on 5 L nasal cannula. DISCHARGE DIET: Diabetic. DISCHARGE MEDICATIONS: 1. Dexamethasone 4 mg p.o. daily. 2. Cymbalta 60 mg p.o. daily. 3. Gabapentin 300 mg p.o. t.i.d. 4. [place] 10 one each p.o. 4 times a day. 5. Ativan 1 mg p.o. t.i.d. 6. Remeron 30 mg p.o. at bedtime. 7. MS Contin 15 mg p.o. b.i.d. 8. Olanzapine 5 mg p.o. at bedtime. 9. Protonix 40 mg p.o. daily. 10. Klor-Con 20 mEq p.o. b.i.d. 11. Sinemet 25 mg p.o. q.6 hours p.r.n. 12. Sodium chloride 1 g p.o. b.i.d. 13. Zestril 200 mg p.o. at bedtime. FOLLOWUP: The patient is being discharged home with her home health, as well as [facility]. She can continue to follow up with Dr. French as indicated. She was awaiting for her laboratory data for them to continue with her treatment as outpatient. The patient can return to the emergency department for any worsening of symptoms. DISCHARGE TIME: Thirty-minutes. Dictated by REDD Montanez for Andres Rashid MD cc: Andres Rashid MD MTDD
== END 2016-07-19 15:33 | disposition home health service (06) ==
LOC: ED 16:50 → EDIPHOLD 23:19 → SUATTDRO 23:19 → 4N 07-16 12:58
PROVIDERS: ATTEND Internal Medicine